=== PATIENT | male | born 1990 | race African-American/Black ===

== ENCOUNTER 2023-09-29 16:18 | Emergency (ER) | payer OTHER ==
[~2023-09-29] VITALS: Ht 170.2 cm; Wt 74.0 kg
[2023-09-29 16:25] VITALS: TEMP 98; O2SAT 99
[2023-09-29] MEDS ORDERED: HYDROCODONE/ACETAMINOPHEN 5/325MG TABLET PO ONE (17:30)
[2023-09-29 17:37] VITALS: BP 163/108; PULSE 80; RESP 13
[2023-09-29] MEDS ORDERED: CYCLOBENZAPRINE 10MG TABLET PO ONE (18:00)
[2023-09-29] MEDS ORDERED: LIDO700A15 TP (18:27)
[2023-09-29] MEDS ORDERED: NAPR-1176 MT (18:27)
== END 2023-09-29 21:34 | disposition home or self-care (01) ==
LOC: ER 16:18
DX: S30.0XXA Contusion of lower back and pelvis, initial encounter (principal); S80.812A Abrasion, left lower leg, initial encounter; V03.99XA Pedestrian with other conveyance injured in collision with car, pick-up truck or van, unspecified whether traffic or nontraffic accident, initial encounter; Y93.89 Activity, other specified; Y92.89 Other specified places as the place of occurrence of the external cause; Y99.8 Other external cause status
CPT/HCPCS: 73590; 99283